=== PATIENT | female | born 1980 | race African-American/Black ===

== ENCOUNTER 2020-06-08 17:18 | Emergency (ER) | payer MEDICAID ==
[~2020-06-08] VITALS: Ht 175.3 cm; Wt 108.0 kg
[2020-06-08] MEDS ORDERED: TRAZODONE HCL 50MG TABLET PO STA (18:01)
[2020-06-08] MEDS ORDERED: QUETIAPINE FUMARATE 50MG TABLET PO STA (18:01)
[2020-06-08 19:22] VITALS: BP 133/78
== END 2020-06-08 19:21 | disposition home or self-care (01) ==
LOC: ER 17:18
DX: Z76.0 Encounter for issue of repeat prescription (principal); F20.9 Schizophrenia, unspecified; F32.9 Major depressive disorder, single episode, unspecified; F43.10 Post-traumatic stress disorder, unspecified; Z91.013 Allergy to seafood
CPT/HCPCS: 81025; 99283; Z7610